=== PATIENT | female | born 1980 | race Caucasian/White ===

== ENCOUNTER 2016-08-27 14:00 | Inpatient (IN) | payer OTHER ==
--- NOTE | ~2016-08-27 | HP ---
Unit #: [id number] #: [id number] Patient: RUTH ANN WEST [id number] [place] [address] [id number] MR#: [id number] NAME: RUTH ANN WEST. ROOM: P266 Age: 36 Sex: F Admission Date: 08/27/2016 : 1980 Attending Physician: Audie Jurado M.D. Admitting Physician: Audie Jurado M.D. Primary Care Physician: Generic Doctor Not In System HISTORY AND PHYSICAL HISTORY OF PRESENT ILLNESS Ruth Ann is a 36 year old admitted to [address] [place] [address] with depression and verbalizing wanting to hurt herself. She has had other admissions to this facility for the treatment of the same. PAST MEDICAL HISTORY 1. Degenerative disc disease 2. Obesity 3. Asthma PAST SURGICAL HISTORY Tubal ligation ALLERGIES Latex, Geodon, Abilify, lactose. SOCIAL HISTORY She denies cigarettes, alcohol and illicit drug use. FAMILY HISTORY Medically noncontributory. REVIEW OF SYSTEMS CONSTITUTIONAL: No fever or chills. HEENT: Denies any sore throat, ear pain or runny nose. CARDIOVASCULAR: Denies chest pain, irregular heart rhythm or palpitations. CHEST: Denies shortness of breath or cough. No hemoptysis. GASTROINTESTINAL: Denies nausea, vomiting, diarrhea or chronic constipation. ENDOCRINE: Denies history of increased thirst or urination. No recent significant weight loss or gain. GENITOURINARY: Denies dysuria, frequency, or hematuria. SKIN: Denies any rashes. HEMATOLOGIC: Denies history of increased bleeding or bruising. MUSCULOSKELETAL: Denies any hot, swollen joints. No generalized muscle pain. NEUROLOGIC: Denies problems with vision or speech. No frequent, severe headaches. No numbness, tingling or weakness in any extremities. Denies loss of bladder or bowel control. CURRENT MEDICATIONS Unit #: [id number] #: [id number] Patient: RUTH ANN WEST 1. Naproxen 500 mg b.i.d. 2. Vistaril 25 mg b.i.d. 3. Risperdal 2 mg b.i.d. 4. Milk of Magnesia p.r.n. 5. Maalox p.r.n. 6. Tylenol p.r.n. 7. Proventil inhaler p.r.n. 8. Lamictal XR 250 mg q day 9. Claritin 10 mg q day 10 Protonix 40 mg q day PHYSICAL EXAMINATION GENERAL: Alert, obese, in no apparent distress. VITAL SIGNS: Blood pressure 110/74, heart rate 80, respirations 16, temperature 98.6. WEIGHT: 160 pounds. HEIGHT: 5'0". SKIN: Warm and dry without rash or lesion. HEENT: Normocephalic. TMs not viewed. Oral and nasal passages clear. Conjunctivae clear. Pupils equal, round and reactive to light and accommodation. Extraocular movements intact. NECK: Supple without lymphadenopathy or thyromegaly. HEART: Regular rate and rhythm without murmur. LUNGS: Clear. ABDOMEN: Soft, nontender. : Not done. EXTREMITIES: No evidence of cyanosis, clubbing or edema. Moves all extremities without focal deficit. NEUROLOGICAL: Grossly within normal limits. Cranial Nerves: II: Visual kaufman are intact. III, IV AND : Extraocular movements are intact. Pupils are equal, round and reactive to light. V: Facial sensation is grossly normal. VII: Facial movements and expression are normal. VIII: Auditory acuity grossly intact. IX, X: Uvula is midline. Phonation is normal. XI: Patient shrugs shoulders and turns head normally. XII: Tongue protrudes in the midline. Sensory and Motor Function: Sensory and motor sensation is grossly normal. Motor: moves all extremities well. Coordination: Gait is normal. Deep Tendon Reflexes: Intact. IMPRESSION Psychiatric admission RECOMMENDATIONS PSYCHIATRIC: Per psychiatrist. MEDICAL: I see no contraindications to participating in facility's activities. MEDICAL PROGNOSIS Good. MEDICAL CONDITION Stable. Unit #: [id number] #: [id number] Patient: RUTH ANN WEST Dictated by... Cris MinorACal-Matthew. for Adele Mercado/travis TD: 08/28/2016 03:02 JOB #: [id number] HISTORY AND PHYSICAL Page 1 of 1 X Tegan Galvez X HISTORY AND PHYSICAL
--- NOTE | ~2016-08-27 | DS ---
Unit #: [id number] #: [id number] Patient: CLIF WEST [id number] [facility] [address] [place] [address] [id number] I MR#: [id number] NAME: CLIF WEST. ROOM: P259 Age: 36 Sex: F Admission Date: 08/27/2016 : 1980 Discharge Date: 08/30/2016 Attending Physician: Audie Jurado M.D. Primary Care Physician: Generic Doctor Not In System DISCHARGE SUMMARY REASON FOR ADMISSION The patient is a 36-year-old white female, admitted with worsening symptoms of suicidal ideation and auditory hallucinations. HOSPITAL COURSE The patient was admitted to the [facility] unit and continued on home medications. Given the reactive nature of her symptoms, no drastic medication changes were undertaken. By 08/28/2016, the patient was in brighter spirits. She requested discharge to take place the following day and it was so ordered. FINAL DIAGNOSES Bipolar disorder, most recent episode depressed; mild mental retardation; borderline personality disorder; environmental allergies; gastroesophageal reflux disease; bronchitis; asthma; and osteoarthritis. DISPOSITION ON DISCHARGE The patient is discharged on the following medications; Zoloft 100 mg at bedtime for depression, Risperdal 3 mg at bedtime for psychosis, Proventil HFA 2 puffs q.4 hours p.r.n. shortness of air, Trokendi XR 100 mg once daily for anxiety and mood stabilization, Vistaril 25 mg b.i.d. p.r.n. anxiety, Protonix 40 mg daily for GERD, Naprosyn 500 mg b.i.d. for osteoarthritis, and Claritin 10 mg once daily for environmental allergies. DIET AND ACTIVITY No dietary or physical restrictions were placed on the patient at the time of discharge. FOLLOWUP Followup will take place through the auspices of [facility]. PROGNOSIS The patient's prognosis is considered fair. ADDENDUM During the patient's stay in the hospital, Wellbutrin was discontinued as she felt as though this medication may have potentially contributed to her worsening auditory hallucinations. Dictated by... Unit #: [id number] #: [id number] Patient: CLIF WEST Aduie Jurado M.D. CB/ravindra TD: 08/29/2016 13:43 JOB #: [id number] DISCHARGE SUMMARY Page 1 of 1 X Audie Jurado MD DISCHARGE SUMMARY
--- NOTE | ~2016-08-27 | PA ---
Unit #: [id number] #: [id number] Patient: CLIF WEST [id number] [place] [address] [id number] I MR#: [id number] NAME: CLIF WEST. ROOM: P266 Age: 36 Sex: F Admission Date: 08/27/2016 : 1980 Date of Assessment: 08/28/2016 Attending Physician: Audie Jurado M.D. Admitting Physician: Audie Jurado M.D. Primary Care Physician: Generic Doctor Not In System PSYCHIATRIC ASSESSMENT IDENTIFYING INFORMATION The patient is a 36-year-old white female well known to this physician. She is readmitted voicing positive suicidal ideation and auditory hallucinations. CHIEF COMPLAINT "I am hearing voices." INFORMANT Patient, reliability is fair. HISTORY OF PRESENT ILLNESS The patient is a 36-year-old white female admitted with recurrent suicidal ideation. She was last admitted to this facility in April under similar circumstances. She reports she feels as though recent addition of Wellbutrin may be contributing to her symptoms, though her last day in the hospital it appeared that she was having reactive symptoms related to recent move to a new apartment. The patient reports that her "neighbors are very nice" and that she is adjusting to her apartment but continues to complain of intrusive thoughts telling her to harm herself. She reports no other current stressors which could be causing this episode. For a more complete history of present illness please refer to previous dictated notes. PAST PSYCHIATRIC HISTORY As reviewed, no changes. PAST MEDICAL HISTORY Reviewed, no changes. MEDICATIONS The patient's current medications include Risperdal, Bupropion, Sertraline, topiramate, omeprazole and Proventil. ALLERGIES Amoxicillin, penicillin, Abilify, Haldol, latex, Geodon, lactose. FAMILY HISTORY Reviewed, no changes. SOCIAL HISTORY Reviewed, no changes. MENTAL STATUS EXAMINATION Unit #: [id number] #: [id number] Patient: CLIF WEST Examination at this time reveals the patient to be a well-developed well-nourished white female appearing her stated age. She is in no apparent physical distress at the time of examination. She is awake, alert, and oriented in all spheres. Her mood is mildly dysphoric, her affect is blunted. Speech is generally well-coherent. There are no gross deficits in memory or cognition noted. Intelligence is judged to be in the average range based on fund of knowledge. The patient is cooperative throughout the interview. She is currently reporting positive suicidal ideation and reports positive auditory hallucinations of a command type. Judgment and insight appear to be significantly impaired. ASSETS AND LIABILITIES The patient's assets: Motivation for change. Liabilities: Poor coping skills, characterologic pathology, limited intelligence. DIAGNOSTIC IMPRESSION 1. Bipolar disorder, most recent episode. 2. Depressed. 3. Mild mental retardation. 4. Borderline personality disorder. 5. Environmental allergies. 6. Gastroesophageal reflux disease. 7. Bronchitis. 8. Asthma. 9. Osteoarthritis. TREATMENT PLAN The patient will continue on previously prescribed medications. I will discontinue Wellbutrin as the patient reports that she feels as though this medication may be having an adverse effect on her mood symptoms. Medical consult will be sought related to the patient's complaint of cough. Suicide precautions are of course in place. ESTIMATED LENGTH OF STAY 5 to 7 days. Followup will take place through the auspices of community mental health resources. Dictated by... Audie Jurado M.D. [place] TD: 08/28/2016 13:52 JOB #: [id number] PSYCHIATRIC ASSESSMENT Page 1 of 1 X Audie Jurado MD X PSYCHIATRIC ASSESSMENT
[~2016-08-27 14:00] MED LIST: ALBUTEROL17 GM; DICYCLOMINE HCL20 MG; HALDOL; LAMICTAL; LOMOTIL TABLET1 TAB
[2016-08-28 09:40] LABS: URINE APPEARANCE CLEAR; URINE BILIRUBIN NEG (NEG); URINE BLOOD NEG (NEG); URINE COLOR YELLOW; URINE GLUCOSE NEG (NEG); URINE KETONE NEG (NEG); URINE LEUKOCYTE ESTERASE NEG (NEG); URINE NITRATE NEG (NEG); URINE PH 6.5 (5-8); URINE PROTEIN NEG (NEG); URINE SPECIFIC GRAVITY 1.003 (1.003-1.035); URINE UROBILINOGEN 0.2 MG/DL (NEG)
[2016-08-28 09:40] LABS: BASOPHIL% 0.6 % (0-2.5); EOSINOPHIL# 0.1 X10e3 (0-0.7); EOSINOPHIL% 1.4 % (0.0-7.0); HEMATOCRIT 40.9 % (35.0-45.0); HEMOGLOBIN 13.5 gm/dL (12.0-16.0); LYMPHOCYTE# 1.4 X10e3 (1.0-3.5); LYMPHOCYTE% 24.3 % (17.0-45.0); MEAN CELL VOLUME 89.8 FL (83-96); MEAN CORPUSCULAR HEMOGLOBIN 29.6 PG (28-34); MEAN CORPUSCULAR HGB CONC 32.9 g/dL (30-36); MEAN PLATELET VOLUME 8.4 FL (6.5-11.5); MONOCYTE# 0.5 X10e3 (0-1.0); MONOCYTE% 8.3 % (3.0-12.0); NEUTROPHIL# 3.9 X10e3 (1.5-7.1); NEUTROPHIL% 65.4 % (40-75); PLATELET COUNT 306 X10e3 (140-420); RED BLOOD COUNT 4.55 X10e (3.90-5.30); RED CELL DISTRIBUTION WIDTH 13.1 % (11.0-15.5); WHITE BLOOD COUNT 5.9 X10e3 (4.0-10.5)
[2016-08-28 09:45] LABS: ALBUMIN SERUM 4.3 g/dL (3.5-5.0); BILIRUBIN,TOTAL 0.7 mg/dL (0.2-2.0); BUN/CREATININE RATIO 11.25; CALCIUM SERUM 9.4 mg/dL (8.4-10.2); CREATININE SERUM 0.8 mg/dL (0.6-1.4); DIFF IND NO; GLOM FILT RATE Estimated 96.3 mL/min (>60); POTASSIUM 4.6 mmol/L (3.5-5.1); PROTEIN TOTAL SERUM 6.7 g/dL (6.0-8.3)
[2016-08-28 09:59] LABS: AMPHETAMINE NEG (NEG); BARBITURATES NEG (NEG); BENZODIAZEPINES NEG (NEG); COCAINE NEG (NEG); MARIJUANA NEG (NEG); OPIATES NEG (NEG); TRICYCLIC ANTIDEPRESSANTS NEG (NEG); U METHADONE NEG (NEG)
== END 2016-08-30 10:30 | disposition home or self-care (01) | DRG 885 ==
LOC: P2L 14:00
PROVIDERS: Specialist
DX: F31.30 Bipolar disorder, current episode depressed, mild or moderate severity, unspecified (principal); F70 Mild intellectual disabilities; R45.851 Suicidal ideations; F60.3 Borderline personality disorder; K21.9 Gastro-esophageal reflux disease without esophagitis; J45.909 Unspecified asthma, uncomplicated; M19.90 Unspecified osteoarthritis, unspecified site; E66.9 Obesity, unspecified
CPT/HCPCS: 80053; 80307; 81003; 82947; 85025

== ENCOUNTER 2016-10-09 14:00 | Inpatient (IN) | payer OTHER ==
--- NOTE | ~2016-10-09 | PA ---
Unit #: [id number] #: [id number] Patient: CLIF WEST [id number] [place] [address] [id number] I MR#: [id number] NAME: CLIF WEST. ROOM: P266 Age: 36 Sex: F Admission Date: 10/09/2016 : 1980 Date of Assessment: 10/10/2016 Attending Physician: Audie Jurado M.D. Admitting Physician: Audie Jurado M.D. Primary Care Physician: Generic Doctor Not In System PSYCHIATRIC ASSESSMENT IDENTIFYING INFORMATION The patient is a 36-year-old white female, admitted to the [address] [place] [address] unit complaining of suicidal ideation and increase in visual hallucinations. INFORMANT(S) Patient, patient reliability is fair. CHIEF COMPLAINT "I'm more depressed." HISTORY OF PRESENT ILLNESS The patient is a 36-year-old white female, brought to this facility by [facility] after she had contacted the suicide hotline voicing positive suicidal ideation. The patient is also reporting positive visual hallucinations stating that she is seeing "black shadow taller than you," in reference to this physician. The patient reports that she is currently living in her own apartment. The current stressors include, potential of finalization of her divorce this weekend, her is coming from out of town and the patient reports significant stress related to this. The patient was reporting positive suicidal ideation with plan to stab herself with a knife. The patient reports that she has been generally compliant with medications but has been unable to obtain her Trokendi XR secondary to some issues with her pharmacy and reports that she has been more anxious with discontinuation of this medication. She continues to endorse hopelessness and suicidal ideation during today's interview and continues to report positive visual hallucinations. For a more complete history of present illness please refer to the previously dictated notes. PAST PSYCHIATRIC HISTORY Reviewed and no changes. PAST MEDICAL HISTORY Reviewed and no changes. MEDICATIONS 1. Zoloft 2. Risperdal 3. Proventil Unit #: [id number] #: [id number] Patient: CLIF WEST 4. Trokendi 5. Vistaril 6. Protonix 7. Naprosyn 8. Claritin ALLERGIES Lactose, Abilify, Haldol, latex, milk, Geodon, and Amoxicillin, and penicillin. FAMILY HISTORY Noncontributory. SOCIAL HISTORY Reviewed and no changes. MENTAL STATUS EXAM At this time reveals the patient to be a well-developed, well-nourished somewhat small statured white female, appearing her stated age. She is in no apparent physical distress at the time of the examination. She is awake, alert, and oriented in all spheres. Her mood is dysphoric. Her affect blunted. Speech is generally relevant and coherent. There are no gross deficits to memory or cognition noted. Intelligence is judged to be in the low average range. The patient is generally cooperative during the interview. She is currently endorsing positive suicidal ideation. She denies homicidal ideation. She denies any psychotic symptoms. She reports positive visual hallucinations as noted previously. Her judgment and insight appear to be significantly impaired. ASSETS To be assessed. LIABILITIES Lack of resources. DIAGNOSTIC IMPRESSION [place] I: Schizoaffective disorder. Borderline intellectual function. PTSD. [place] II: [place] III: Asthma. Hypoglycemia by history. TREATMENT PLAN The patient will be restarted on previously prescribed medications, I will discontinue the patient's "Trokendi" and begin regular Topiramate 50 mg twice daily in hopes of addressing the patient's symptoms of anxiety. We will continue currently prescribed medications but may consider upward titration of Risperdal should the patient persist in her complaints of visual hallucinations. ESTIMATED LENGTH OF STAY IN THE HOSPITAL Kcbp-[id number] days. Dictated by... Unit #: [id number] #: [id number] Patient: CLIF WEST M.D. CB/kelsie TD: 10/10/2016 12:42 JOB #: [id number] PSYCHIATRIC ASSESSMENT Page 1 of 1 X Audie Jurado MD PSYCHIATRIC ASSESSMENT
--- NOTE | ~2016-10-09 | DS ---
Unit #: [id number] #: [id number] Patient: CLIF WEST [id number] [place] [address] [id number] I MR#: [id number] NAME: CLIF WEST. ROOM: P266 Age: 36 Sex: F Admission Date: 10/09/2016 : 1980 Discharge Date: 10/12/2016 Attending Physician: Audie Jurado M.D. Primary Care Physician: Generic Doctor Not In System DISCHARGE SUMMARY REASON FOR ADMISSION The patient is a 36-year-old white female, admitted to the 2[facility] unit with complaints of depressed mood and suicidal ideation. HOSPITAL COURSE The patient was admitted to the 2-[facility] unit and placed on suicide precautions. She was continued on previously prescribed home medications and no major medication changes were made during the patient's stay in the hospital. The patient did report that she was unable to obtain "Trokendi XR" from her pharmacy and the patient was instead begun on Topamax 15 mg b.i.d. which she tolerated well. By 10/12/2016, the patient was in bright spirits and requested discharge. It was so ordered. FINAL DIAGNOSES Schizoaffective disorder; mild mental retardation. DISPOSITION ON DISCHARGE The patient is discharged on the following medications: Zoloft 100 mg nightly for depression, Risperdal 3 mg nightly for mood stabilization, Proventil 2 puffs q.4 hours p.r.n. shortness of air, Vistaril 25 mg b.i.d. for anxiety, Protonix 40 mg once daily for GERD, Claritin 10 mg daily for environmental allergies, Naprosyn 500 mg b.i.d. for chronic pain, and Topamax 15 mg b.i.d. for anxiety. DISCHARGE INSTRUCTIONS No dietary or physical restrictions were placed upon the patient at the time of discharge. FOLLOWUP Followup will take place through the auspices of [facility]. PROGNOSIS The patient's prognosis is considered fair. Dictated by... Audie Jurado M.D. CB/ravindra TD: 10/12/2016 16:49 JOB #: [id number] Unit #: [id number] #: [id number] Patient: CLIF WEST DISCHARGE SUMMARY Page 1 of 1 X Audie Jurado MD X DISCHARGE SUMMARY
--- NOTE | ~2016-10-09 | PN ---
Unit #: [id number] #: [id number] Patient: CLIF WEST [id number] [facility] [address] [place] [address] [id number] I MR#: [id number] NAME: CLIF WEST. ROOM: P266 Age: 36 Sex: F Admission Date: 10/09/2016 : 1980 Attending Physician: Audie Jurado M.D. Admitting Physician: Audie Jurado M.D. Primary Care Physician: Generic Doctor Not In System [facility] PROGRESS NOTES DATE 10/11/2016 DISCUSSION The patient seems brighter today and is denying auditory or visual hallucinations or suicidal ideations. Should she sustain progress, discharge will likely take place tomorrow. Dictated by... Audie Jurado M.D. CB/kala TD: 10/11/2016 15:49 JOB #: [id number] [facility] PROGRESS NOTES Page 1 of 1 X Audie Jurado MD X PROGRESS NOTE
--- NOTE | ~2016-10-09 | HP ---
Unit #: [id number] #: [id number] Patient: RUTH ANN WEST [id number] [place] [address] [id number] I MR#: [id number] NAME: RUTH ANN WEST. ROOM: P266 Age: 36 Sex: F Admission Date: 10/09/2016 : 1980 Attending Physician: Audie Jurado M.D. Admitting Physician: Audie Jurado M.D. Primary Care Physician: Generic Doctor Not In System HISTORY AND PHYSICAL HISTORY OF PRESENT ILLNESS Ruth Ann is a 36 year old admitted to [address] [place] [address] with depression and verbalizing wanting to hurt herself. She has had other admissions to this facility for the same. PAST MEDICAL HISTORY 1. Degenerative disc disease. 2. Obesity. 3. Asthma. PAST SURGICAL HISTORY Tubal ligation. ALLERGIES Latex, Geodon, Abilify, lactose. SOCIAL HISTORY She denies cigarettes, alcohol and illicit drug use. FAMILY HISTORY Medically noncontributory. REVIEW OF SYSTEMS CONSTITUTIONAL: No fever or chills. HEENT: Denies any sore throat, ear pain or runny nose. CARDIOVASCULAR: Denies chest pain, irregular heart rhythm or palpitations. CHEST: Denies shortness of breath or cough. No hemoptysis. GASTROINTESTINAL: Denies nausea, vomiting, diarrhea or chronic constipation. ENDOCRINE: Denies history of increased thirst or urination. No recent significant weight loss or gain. GENITOURINARY: Denies dysuria, frequency, or hematuria. SKIN: Denies any rashes. HEMATOLOGIC: Denies history of increased bleeding or bruising. MUSCULOSKELETAL: Denies any hot, swollen joints. No generalized muscle pain. NEUROLOGIC: Denies problems with vision or speech. No frequent, severe headaches. No numbness, tingling or weakness in any extremities. Denies loss of bladder or bowel control. CURRENT MEDICATIONS 1. Risperdal 3 mg q.h.s. 2. Zoloft 100 mg q.h.s. Unit #: [id number] #: [id number] Patient: RUTH ANN WEST 3. Milk of Magnesia p.r.n. 4. Maalox p.r.n. 5. Tylenol p.r.n. 6. Naproxen 500 mg b.i.d. 7. Vistaril p.r.n. 8. Proventil inhaler p.r.n. 9. Claritin 10 mg daily. 10. Protonix 40 mg daily. 11. Trokendi XR 100 mg daily. PHYSICAL EXAMINATION GENERAL: Alert, obese, in no apparent distress. VITAL SIGNS: Blood pressure 100/96, heart rate 80, respirations 16, temperature 98.6. WEIGHT: 159. HEIGHT: 5 feet 0 inches. SKIN: Warm and dry without rash or lesion. HEENT: Normocephalic. TMs not viewed. Oral and nasal passages clear. Conjunctivae clear. PERRLA. EOMs intact. NECK: Supple without lymphadenopathy or thyromegaly. HEART: Regular rate and rhythm without murmur. LUNGS: Clear. ABDOMEN: Soft, nontender. : Not done. EXTREMITIES: No evidence of cyanosis, clubbing or edema. Moves all without focal deficit. NEUROLOGICAL: Grossly within normal limits. Cranial Nerves: II: Visual kaufman are intact. III, IV AND : Extraocular movements are intact. Pupils are equal, round and reactive to light. V: Facial sensation is grossly normal. VII: Facial movements and expression are normal. VIII: Auditory acuity grossly intact. IX, X: Uvula is midline. Phonation is normal. XI: Patient shrugs shoulders and turns head normally. XII: Tongue protrudes in the midline. Sensory and Motor Function: Sensory and motor sensation is grossly normal. Motor: moves all extremities well. Coordination: Gait is normal. Deep Tendon Reflexes: Intact. IMPRESSION Psychiatric admission. RECOMMENDATIONS PSYCHIATRIC: Per psychiatrist. MEDICAL: See no contraindications to participate in facility's activities. MEDICAL PROGNOSIS Good. MEDICAL CONDITION Stable. Dictated by... Tegan Galvez P.A.-C. for Porter Hull M.D. Unit #: [id number] #: [id number] Patient: RUTH ANN WEST OTILIO/kala TD: 10/10/2016 20:50 JOB #: [id number] HISTORY AND PHYSICAL Page 1 of 1 X Tegan Galvez X HISTORY AND PHYSICAL
[2016-10-10 09:40] LABS: URINE APPEARANCE CLEAR; URINE BILIRUBIN NEG (NEG); URINE BLOOD NEG (NEG); URINE COLOR YELLOW; URINE GLUCOSE NEG (NEG); URINE KETONE NEG (NEG); URINE LEUKOCYTE ESTERASE TRACE (NEG); URINE NITRATE NEG (NEG); URINE PH 7.5 (5-8); URINE PROTEIN NEG (NEG); URINE SPECIFIC GRAVITY 1.003 (1.003-1.035); URINE UROBILINOGEN 0.2 MG/DL (NEG)
[2016-10-10 09:41] LABS: BASOPHIL% 0.6 % (0-2.5); EOSINOPHIL# 0.1 X10e3 (0-0.7); EOSINOPHIL% 1.7 % (0.0-7.0); HEMATOCRIT 40.2 % (35.0-45.0); HEMOGLOBIN 13.5 gm/dL (12.0-16.0); LYMPHOCYTE# 1.6 X10e3 (1.0-3.5); MEAN CELL VOLUME 89.4 FL (83-96); MEAN CORPUSCULAR HEMOGLOBIN 29.9 PG (28-34); MEAN CORPUSCULAR HGB CONC 33.5 g/dL (30-36); MEAN PLATELET VOLUME 9.3 FL (6.5-11.5); MONOCYTE# 0.6 X10e3 (0-1.0); MONOCYTE% 11.4 % (3.0-12.0); NEUTROPHIL# 3.2 X10e3 (1.5-7.1); NEUTROPHIL% 58.3 % (40-75); PLATELET COUNT 231 X10e3 (140-420); RED CELL DISTRIBUTION WIDTH 13.3 % (11.0-15.5); WHITE BLOOD COUNT 5.6 X10e3 (4.0-10.5)
[2016-10-10 09:43] LABS: DIFF IND NO
[2016-10-10 09:44] LABS: URBCS1 AUWI 0-2 /[HPF] (0-2); URINE BACTERIA AUWI NEG (NEGATIVE); URINE SQUAMOUS EPITHELIAL CELL OCC /[HPF]; UWBCS1 AUWI 0-2 (0-5)
[2016-10-10 10:19] LABS: AMPHETAMINE NEG (NEG); BARBITURATES NEG (NEG); BENZODIAZEPINES NEG (NEG); COCAINE NEG (NEG); MARIJUANA NEG (NEG); OPIATES NEG (NEG); TRICYCLIC ANTIDEPRESSANTS NEG (NEG); U METHADONE NEG (NEG)
[2016-10-10 10:25] LABS: ALBUMIN SERUM 4.4 g/dL (3.5-5.0); BILIRUBIN,TOTAL 0.7 mg/dL (0.2-2.0); BUN/CREATININE RATIO 13.75; CALCIUM SERUM 9.4 mg/dL (8.4-10.2); CREATININE SERUM 0.8 mg/dL (0.6-1.4); GLOM FILT RATE Estimated 96.3 mL/min (>60); POTASSIUM 4.3 mmol/L (3.5-5.1); PROTEIN TOTAL SERUM 6.9 g/dL (6.0-8.3)
== END 2016-10-12 13:50 | disposition home or self-care (01) | DRG 885 ==
LOC: P2L 16:20
PROVIDERS: Specialist
DX: F25.9 Schizoaffective disorder, unspecified (principal); R45.851 Suicidal ideations; R41.83 Borderline intellectual functioning; F43.10 Post-traumatic stress disorder, unspecified; J45.909 Unspecified asthma, uncomplicated; F41.9 Anxiety disorder, unspecified; E66.9 Obesity, unspecified; K21.9 Gastro-esophageal reflux disease without esophagitis; G89.29 Other chronic pain
CPT/HCPCS: 80053; 80307; 81003; 82947; 84703; 85025

== ENCOUNTER 2016-11-19 12:25 | Inpatient (IN) | payer OTHER ==
[~2016-11-19] VITALS: Ht 152.4 cm; Wt 73.9 kg
--- NOTE | ~2016-11-19 | PN ---
Unit #: [id number] #: [id number] Patient: CLIF WEST [id number] [facility] [address] [place] [address] [id number] I MR#: [id number] NAME: CLIF WEST. ROOM: P258 Age: 36 Sex: F Admission Date: 11/19/2016 : 1980 Attending Physician: Audie Jurado M.D. Admitting Physician: Audie Jurado M.D. Primary Care Physician: Generic Doctor Not In System [facility] PROGRESS NOTES DATE 11/21/2016 DISCUSSION The patient is abed today. She reports that the voices have "calmed down quite a bit" and she seems to be tolerating the increased dose of medication. I have encouraged her to increase her participation within the therapeutic milieu and discussed with her realistic expectations of inpatient care. Dictated by... Audie Jurado M.D. CB/tahira TD: 11/21/2016 13:34 JOB #: [id number] [facility] PROGRESS NOTES Page 1 of 1 X Audie Jurado MD X PROGRESS NOTE
--- NOTE | ~2016-11-19 | PA ---
Unit #: [id number] #: [id number] Patient: CLIF WEST [id number] [place] [address] [id number] I MR#: [id number] NAME: CLIF WEST. ROOM: P258 Age: 36 Sex: F Admission Date: 11/19/2016 : 1980 Date of Assessment: 11/20/2016 Attending Physician: Audie Jurado M.D. Admitting Physician: Audie Jurado M.D. Primary Care Physician: Generic Doctor Not In System PSYCHIATRIC ASSESSMENT IDENTIFYING INFORMATION The patient is a 36-year-old white female, admitted voicing positive suicidal ideation. INFORMANT(S) Patient, reliability is fair. CHIEF COMPLAINT "The voices came back." HISTORY OF PRESENT ILLNESS The patient is a 36-year-old white female, well known to this physician from multiple previous admissions to this facility. She was last discharged on 10/12/2016. The patient reports recurrence of auditory hallucinations which occurred approximately two weeks ago. She reports that the voices tell her to harm herself and she is fearful that she will react on these thoughts. The patient reports that she has been compliant with her prescribed psychotropic medications, recently the most prominent re-stressor is her having had to mail divorce papers to her in [place]. The two have been for some time. The patient is reporting the believe that she may be ; however, in the past she has claimed to have had a tubal ligation. For a more complete history of present illness please refer to previously dictated notes. PAST PSYCHIATRIC HISTORY Reviewed and no changes. PAST MEDICAL HISTORY Reviewed and no changes. MEDICATIONS 1. Topamax 2. Zoloft 3. Risperdal 4. Proventil 5. Vistaril 6. Claritin 7. Protonix 8. Naprosyn ALLERGIES Abilify, Haldol, latex, trazodone, lactose, penicillin Unit #: [id number] #: [id number] Patient: CLIF WEST FAMILY HISTORY Reviewed and no changes. SOCIAL HISTORY Reviewed and no changes. MENTAL STATUS EXAM At this time reveals the patient to be a slightly obese white female, appearing her stated age. She is in no apparent physical distress at the time of the examination. She is awake, alert, and oriented in all spheres. Her mood is dysphoric. Her affect constricted. Speech is generally relevant and coherent. There are no gross deficits to memory or cognition noted. Intelligence is judged to be in the below-average range based on fund of knowledge. The patient is cooperative throughout the interview. She continues to endorse positive suicidal ideation. She denies homicidal ideation. She reports positive auditory command hallucinations. Her judgment and insight appear to be somewhat impaired. ASSETS To be assessed. LIABILITIES Severity and chronicity of illness. DIAGNOSTIC IMPRESSION [place] I: Schizoaffective disorder. Mild mental retardation. [place] II: [place] III: Asthma. Environmental allergies. GERD. TREATMENT PLAN The patient remains hospitalized for safety and stabilization and we will continue the prescribed medications including Risperdal to 4 mg at h.s. A stat Beta HCG will be checked but it is my feeling that the patient's complaints of reportedly being is probably delusional in nature given the fact that she has reported a history of tubal ligation in the past. ESTIMATED LENGTH OF STAY IN THE HOSPITAL Yyywy-ij-oshj days. Dictated by... Audie Jurado M.D. BETZY/kelsie TD: 11/20/2016 13:10 JOB #: [id number] Unit #: [id number] #: [id number] Patient: CLIF WEST PSYCHIATRIC ASSESSMENT Page 1 of 1 X Audie Jurado MD PSYCHIATRIC ASSESSMENT
--- NOTE | ~2016-11-19 | HP ---
Unit #: [id number] #: [id number] Patient: RUTH ANN WEST [id number] [place] [address] [id number] I MR#: [id number] NAME: RUTH ANN WEST. ROOM: P258 Age: 36 Sex: F Admission Date: 11/19/2016 : 1980 Attending Physician: Audie Jurado M.D. Admitting Physician: Audie Jurado M.D. Primary Care Physician: Generic Doctor Not In System HISTORY AND PHYSICAL HISTORY OF PRESENT ILLNESS Ruth Ann is a 36-year-old female admitted on 11/19/[address] [place] [address] for auditory hallucinations with suicidal ideation. PAST MEDICAL HISTORY 1. Asthma. 2. Degenerative disc disease. 3. Obesity. 4. Seasonal allergies. 5. GERD. 6. Lactose intolerance. PAST SURGICAL HISTORY Bilateral tubal ligation. ALLERGIES Amoxicillin, Abilify, Haldol, latex, ziprasidone. SOCIAL HISTORY She denies tobacco, alcohol or illegal drug use. She is currently from her and living alone. FAMILY HISTORY Noncontributory. REVIEW OF SYSTEMS CONSTITUTIONAL: No fever or chills. HEENT: Denies any sore throat, ear pain or runny nose. CARDIOVASCULAR: Denies chest pain, irregular heart rhythm or palpitations. CHEST: Denies shortness of breath or cough. No hemoptysis. GASTROINTESTINAL: Denies nausea, vomiting, diarrhea or chronic constipation. ENDOCRINE: Denies history of increased thirst or urination. No recent significant weight loss or gain. GENITOURINARY: Denies dysuria, frequency, or hematuria. SKIN: Denies any rashes. HEMATOLOGIC: Denies history of increased bleeding or bruising. MUSCULOSKELETAL: Denies any hot, swollen joints. No generalized muscle pain. NEUROLOGIC: Denies problems with vision or speech. No frequent, severe headaches. No numbness, tingling or weakness in any extremities. Denies loss of bladder or bowel control. Unit #: [id number] #: [id number] Patient: RUTH ANN WEST CURRENT MEDICATIONS 1. Topamax. 2. Zoloft. 3. Risperdal. 4. Proventil. 5. Vistaril. 6. Claritin. 7. Protonix. 8. Naproxen. PHYSICAL EXAMINATION GENERAL: Alert, oriented, in no acute distress. VITAL SIGNS: Blood pressure 144/74, heart rate 67, respirations 16, temperature 98.2. HEIGHT: 5 feet 0. WEIGHT: 163 pounds. SKIN: Warm and dry without rash or lesion. HEENT: Normocephalic. TMs not viewed. Oral and nasal passages clear. Conjunctivae clear. PERRLA. EOMs intact. NECK: Supple without lymphadenopathy or thyromegaly. HEART: Regular rate and rhythm without murmur. LUNGS: Clear. ABDOMEN: Soft, nontender, without masses or hepatosplenomegaly. : Not done. EXTREMITIES: No evidence of cyanosis, clubbing or edema. Moves all without focal deficit. NEUROLOGICAL: Grossly within normal limits. Cranial Nerves: II: Visual kaufman are intact. III, IV AND : Extraocular movements are intact. Pupils are equal, round and reactive to light. V: Facial sensation is grossly normal. VII: Facial movements and expression are normal. VIII: Auditory acuity grossly intact. IX, X: Uvula is midline. Phonation is normal. XI: Patient shrugs shoulders and turns head normally. XII: Tongue protrudes in the midline. Sensory and Motor Function: Sensory and motor sensation is grossly normal. Motor: moves all extremities well. Coordination: Gait is normal. Deep Tendon Reflexes: Intact. IMPRESSION 1. Psychiatric admission. 2. Asthma. 3. Obesity. 4. Degenerative disc disease. 5. Lactose intolerance. 6. Seasonal allergies. 7. Gastroesophageal reflux disease. RECOMMENDATIONS PSYCHIATRIC: Per psychiatrist. MEDICAL: No contraindication to participate in facility's activities. MEDICAL PROGNOSIS Good. MEDICAL CONDITION Stable. Unit #: [id number] #: [id number] Patient: RUTH ANN WEST Dictated by... Elmira Orta/kala TD: 11/20/2016 17:56 JOB #: [id number] HISTORY AND PHYSICAL Page 1 of 1 X VIELKA ROBINS APRN HISTORY AND PHYSICAL
--- NOTE | ~2016-11-19 | DS ---
Unit #: [id number] #: [id number] Patient: CLIF WEST [id number] [place] [address] [id number] MR#: [id number] NAME: CLIF WEST. ROOM: P258 Age: 36 Sex: F Admission Date: 11/19/2016 : 1980 Discharge Date: 11/22/2016 Attending Physician: Audie Jurado M.D. Primary Care Physician: Generic Doctor Not In System DISCHARGE SUMMARY REASON FOR ADMISSION The patient is a 36-year-old white female, admitted to the [facility] unit with increased auditory hallucinations of a command type. HOSPITAL COURSE The patient was admitted to the [facility] unit. Risperdal was increased from 3 to 4 mg at bedtime and the patient's other medications continued. Her stay in the hospital was a brief and fairly typical one. By 11/21 she was reporting reduction in auditory hallucinations. On 11/22 the patient was in bright spirits and denied suicidal ideation discharge was ordered. FINAL DIAGNOSES 1. Schizoaffective disorder. 2. Mild mental retardation. 3. GERD. 4. Asthma. DISPOSITION ON DISCHARGE The patient is discharged on the following medications: Topamax 15 mg twice daily for anxiety, Zoloft 100 mg at bedtime for depression, Proventil HFA 2 puffs q.4 hours p.r.n. shortness of air, Claritin 10 mg daily for environmental allergies, Protonix 40 mg daily for GERD, Naprosyn 500 mg twice daily for arthritis, vistaril 25 mg twice daily for anxiety, Risperdal 4 mg at bedtime for psychosis. No dietary or physical restrictions were placed upon the patient at the time of discharge. She will follow through the auspices of [facility]. Her prognosis is considered good. Dictated by... Audie Jurado M.D. CB/travis TD: 11/23/2016 02:01 JOB #: [id number] Unit #: [id number] #: [id number] Patient: CLIF WEST DISCHARGE SUMMARY Page 1 of 1 X Audie Jurado MD DISCHARGE SUMMARY
[2016-11-20 09:51] LABS: BASOPHIL% 0.6 % (0-2.5); EOSINOPHIL# 0.1 X10e3 (0-0.7); EOSINOPHIL% 1.4 % (0.0-7.0); HEMATOCRIT 39.5 % (35.0-45.0); HEMOGLOBIN 13.5 gm/dL (12.0-16.0); LYMPHOCYTE# 1.3 X10e3 (1.0-3.5); LYMPHOCYTE% 24.9 % (17.0-45.0); MEAN CORPUSCULAR HEMOGLOBIN 30.4 PG (28-34); MEAN CORPUSCULAR HGB CONC 34.2 g/dL (30-36); MEAN PLATELET VOLUME 8.4 FL (6.5-11.5); MONOCYTE# 0.4 X10e3 (0-1.0); MONOCYTE% 7.2 % (3.0-12.0); NEUTROPHIL# 3.6 X10e3 (1.5-7.1); NEUTROPHIL% 65.9 % (40-75); PLATELET COUNT 249 X10e3 (140-420); RED BLOOD COUNT 4.44 X10e (3.90-5.30); RED CELL DISTRIBUTION WIDTH 12.9 % (11.0-15.5); WHITE BLOOD COUNT 5.4 X10e3 (4.0-10.5)
[2016-11-20 09:58] LABS: DIFF IND NO
[2016-11-20 10:03] LABS: URINE APPEARANCE CLEAR; URINE BILIRUBIN NEG (NEG); URINE BLOOD NEG (NEG); URINE COLOR YELLOW; URINE GLUCOSE NEG (NEG); URINE KETONE NEG (NEG); URINE LEUKOCYTE ESTERASE 2+ (NEG); URINE NITRATE NEG (NEG); URINE PROTEIN NEG (NEG); URINE SPECIFIC GRAVITY 1.004 (1.003-1.035); URINE UROBILINOGEN 0.2 MG/DL (NEG)
[2016-11-20 10:08] LABS: URBCS1 AUWI 0-2 /[HPF] (0-2); URINE BACTERIA AUWI NEG (NEGATIVE); URINE SQUAMOUS EPITHELIAL CELL OCC /[HPF]
[2016-11-20 10:17] LABS: ALBUMIN SERUM 4.4 g/dL (3.5-5.0); BILIRUBIN,TOTAL 0.7 mg/dL (0.2-2.0); BUN/CREATININE RATIO 11.25; CALCIUM SERUM 9.5 mg/dL (8.4-10.2); CREATININE SERUM 0.8 mg/dL (0.6-1.4); GLOM FILT RATE Estimated 96.3 mL/min (>60); PROTEIN TOTAL SERUM 7.2 g/dL (6.0-8.3)
[2016-11-20 10:30] LABS: AMPHETAMINE NEG (NEG); BARBITURATES NEG (NEG); BENZODIAZEPINES NEG (NEG); COCAINE NEG (NEG); MARIJUANA NEG (NEG); OPIATES NEG (NEG); TRICYCLIC ANTIDEPRESSANTS NEG (NEG); U METHADONE NEG (NEG)
== END 2016-11-22 16:20 | disposition home or self-care (01) | DRG 885 ==
LOC: P2L 13:57
PROVIDERS: Specialist
DX: F25.9 Schizoaffective disorder, unspecified (principal); F70 Mild intellectual disabilities; E66.9 Obesity, unspecified; K21.9 Gastro-esophageal reflux disease without esophagitis
CPT/HCPCS: 80053; 80307; 81003; 84703; 85025